=== PATIENT | male | born 1940 | race Caucasian/White ===

== ENCOUNTER → 2022-12-12 | Outpatient (CLI) | payer MEDICARE, SELFPAY ==
[2022-12-12 12:07] LABS: Absolute Lymphocyte Count 1.55 X10^3/uL (0.83-4.51); Absolute Neutrophil Count 3.7 X10^3/uL (2.0-7.7); Basophil# 0.08 X10^3/uL; Basophil% 1.2 % (0-1); Eosinophil# 0.35 X10^3/uL; Eosinophils% 5.4 % (0-5); Hematocrit 42.4 % (40-54); Hemoglobin 14.1 g/dL (13.0-16.5); Lymphocyte # 1.55 X10^3/ul (0.83-4.51); Lymphocyte % 23.8 % (19-41); Mean Corp Hgb Conc 33.3 g/dL (32-36); Mean Corpuscular Hgb 29.9 pg (27.0-32.0); Mean Corpuscular Volume 89.8 fL (80-94); Mean Platelet Vol. 9.6 fl (6.2-12.0); Monocyte# 0.83 X10^3/uL; Monocyte% 12.8 % (0-10); NRBC Flagged by Analyzer 0 % (0-5); Neutrophil # 3.68 X10^3/uL (2.7-7.7); Neutrophil % 56.6 % (47-70); Platelet Count 322 K/mm3 (150-450); RBC Distribution Width CV 13.5 % (11.6-14.6); Red Blood Count 4.72 M/mm3 (4.6-6.2); White Blood Count 6.5 K/mm3 (4.4-11.0)
[2022-12-12 12:19] LABS: Erythrocyte Sedimentation Rate 10 mm/hr (0-20)
[2022-12-12 12:46] LABS: CRP 4.96 mg/L (0.0-3.0)
== END | disposition home or self-care (01) ==
LOC: MTLAB 10:27
PROVIDERS: Referring Provider Ophthalmology; Visit Provider Ophthalmology
DX: H49.22 Sixth [abducent] nerve palsy, left eye (principal); Z96.1 Presence of intraocular lens
CPT/HCPCS: 36415; 85025; 85652; 86140

== ENCOUNTER 2023-06-12 19:14 | Emergency (ER) | payer MEDICARE, SELFPAY ==
[2023-06-12 19:15] VITALS: BP 160/93; PULSE 62; RESP 15; TEMP 35.7; O2SAT 96
--- NOTE | 2023-06-12 19:40 | RAD_ITS ---
STUDY: X-RAY - LEFT ANKLE REASON FOR EXAM: Male, 82 years old. INJURY TECHNIQUE: 3 view(s) of the ankle. COMPARISON: None. FINDINGS: Normal visualized distal tibia and fibula. Normal medial and lateral malleoli. Normal tibiotalar articulation and ankle mortise. Normal visualized talus and small plantar calcaneal spur The visualized subtalar, talonavicular, calcaneocuboid and tarsal articulations are normal. Soft tissue swelling of the lateral hindfoot and findings suspicious for avulsion fracture of the lateral cuboid only seen on AP view. Dedicated study of the foot recommended for further evaluation RAD/Ankle min 3 Views IMPRESSION: Normal x-ray examination of the ankle Findings suspicious for possible fracture of the lateral navicular only seen on the AP view. Additional studies of the foot recommended for further evaluation. Electronically Signed: Chano Kapoor MD at 20:18 EDT ,
--- NOTE | 2023-06-12 20:52 | ED.VIS.LOWEX ---
HPI History of Present Illness Chief Complaint: Lower Extremity Injury Informant: patient Narrative Narrative: Patient was in his garden earlier and stepped on an uneven piece of ground, causing his left foot to invert, with sudden onset of pain and a pop in the lateral part of his ankle. He states since then he has been unable to put any amount of significant weight on his left foot. He denies pain or injury elsewhere. [facility] Medical History HTN (hypertension) Allergy/AdvReac Type Severity Reaction Status Date / Time No Known Allergies Allergy Verified 06/12/23 19:19 Surgical History History of hip replacement Social History Smoking Status: Never smoker ROS ROS ED Constitutional Constitutional ED: Denies chills or fever(s) Musculoskeletal Musculoskeletal: Reports extremity pain; Denies neck pain Integumentary Denies Abrasions, rash or wounds Neurologic Neurologic: Denies paresthesias or weakness EXAM Physical Exam Const Vital Signs: 06/12/23 19:15 06/12/23 22:24 Temperature 96.2 F L Temperature Source Temporal Pulse Rate 62 57 L Respiratory Rate 15 16 Blood Pressure 160/93 H 138/75 H Blood Pressure Mean 115 96 Pulse Ox 96 97 Oxygen Delivery Method Room Air Room Air Positive well nourished and well developed General Appearance ED: well developed and NAD Neck full ROM and supple Back/Spine normal ROM and normal to inspection Extremity Extremity Narrative: Tenderness and some swelling at the distal aspect of the left lateral malleolus. He has some less/minor tenderness at the base of the fifth metatarsal, there is no swelling there. There is no tenderness in any other bony prominence of the foot or ankle including the medial malleolus, the joint is stable, limited range of motion due to pain, and no tenderness at the proximal fibula or elsewhere in the left lower extremity. Neuro oriented x3, no focal motor deficits and no sensory deficits noted Sensorium / Orientation: alert Psych mental status grossly normal and thought process normal Skin no wounds Rashes: no rashes MDM MDM MDM Narrative Medical decision making narrative: X-ray series 3 views of the left ankle on my interpretation negative for acute fracture. Radiology interpretation was reviewed, he was suspicious for a possible abnormal navicular and recommended a foot series, which was then obtained. Three-view series left foot on my interpretation does show what appears to be an avulsion fracture, suspecting the talus. The base of the fifth metatarsal appears normal. Radiology in agreement. Discussed with podiatry Dr. Maynard. He recommends boot orthosis, non--weightbearing with crutches and close outpatient follow-up. Patient was offered analgesics, he said he would take some Tylenol which was also given. Radiography Diagnostic Testing: Clinical Impression(s) from Imaging Studies Ankle X-Ray 06/12/23 19:40 IMPRESSION: Normal x-ray examination of the ankle Findings suspicious for possible fracture of the lateral navicular only seen on the AP view. Additional studies of the foot recommended for further evaluation. Electronically Signed: Chano Kapoor MD at 20:18 EDT , Foot X-Ray 06/12/23 21:11 IMPRESSION: Suspect acute cortical avulsion fracture of the distal lateral talus with separation of fracture fragments Electronically Signed: Chano Kapoor MD at 21:58 EDT , Discharge Plan Triage Chief Complaint: Lower Extremity Injury ED Provider: Sumeet Renee Dx/Rx/DC Orders Clinical Impression: Avulsion fracture of left talus, Left ankle sprain Instructions: ED Fracture, Foot, ED Ankle Sprain (Adult) Primary Care Provider: [facility] Doctor,Out of Referrals: Ervin Maynard DPM [Med Staff - Active Staff] - (call for follow up appt to be seen within the next 1-2 weeks) Care Physician,No Primary [Non-Staff] - Activity Restrictions/Additional Instructions: Try to avoid bearing any weight on your left foot. May take the boot off to sleep, bathe. Disposition Disposition: Home, Self Care
--- NOTE | 2023-06-12 21:11 | RAD_ITS ---
STUDY: X-RAY - LEFT FOOT CLINICAL: Male, 82 years old. injury TECHNIQUE: 3 view(s) of the foot. COMPARISON: None. FINDINGS: There is a bony density lateral to the distal talus with irregular margins and adjacent soft tissue swelling suspicious for avulsed cortical fracture. Tiny plantar calcaneal spur Normal visualized subtalar, talonavicular, calcaneocuboid, tarsal and tarsometatarsal articulations. Normal metatarsi. Normal metatarsophalangeal joint of the great toe. Normal tibial and fibular sesamoid bones. Normal interphalangeal joint of the great toe. Normal phalanges of the great toe. Normal second through fifth metatarsophalangeal joints. Normal interphalangeal joints and phalanges of the lesser toes. RAD/Foot min 3 Views IMPRESSION: Suspect acute cortical avulsion fracture of the distal lateral talus with separation of fracture fragments Electronically Signed: Chano Kapoor MD at 21:58 EDT ,
[2023-06-12] MEDS: Acetaminophen 500 MG Tablet 1000 MG PO (22:21)
[2023-06-12 22:24] VITALS: BP 138/75; PULSE 57; RESP 16; O2SAT 97
[2023-06-12 22:25] VITALS: BMI 35.6
== END 2023-06-12 23:21 | disposition home or self-care (01) ==
PROVIDERS: Emergency Provider Emergency Medicine; Visit Provider Emergency Medicine
DX: S92.102A Unspecified fracture of left talus, initial encounter for closed fracture (principal); S93.402A Sprain of unspecified ligament of left ankle, initial encounter; X50.1XXA Overexertion from prolonged static or awkward postures, initial encounter; I10 Essential (primary) hypertension
CPT/HCPCS: 73610; 73630; 99284

== ENCOUNTER → 2023-06-23 | Outpatient (CLI) | payer MEDICARE, SELFPAY ==
--- NOTE | 2023-06-23 07:34 | MRI_ITS ---
STUDY: MRI LEFT ANKLE WITHOUT CONTRAST REASON FOR EXAM: Male, 83 years old. LT ANKLE,PAIN,POST TRAUMA,EVAL FOR PT SPLIT TEAR/FX OF HIND FOOT TECHNIQUE: Standardized fat and water weighted pulse sequences were obtained in all 3 orthogonal planes. COMPARISON: None. FINDINGS: Normal subcutis adipose space. Normal posterior tibialis tendon. Normal flexor digitorum longus tendon. Normal flexor hallucis longus tendon. There is a tenosynovitis of the peroneal tendons without a demonstrated tendon tear. 5 mm os perineum with thickening of the adjacent peroneus longus tendon. Normal tibialis anterior tendon. Normal extensor hallucis longus tendon. Normal extensor digitorum longus tendons. Normal Achilles tendon and teno-osseous insertion. There is a plantar fasciitis with plantar fascial thickening and fascial edema, but without a focal tear. There is a plantar calcaneal spur, but without cancellous marrow edema. Normal intrinsic muscles of the rearfoot. Normal distal tibiofibular syndesmotic ligamentous complex. There is scarring with thickening of the anterior talofibular ligament consistent with a remote sprain. Normal subtalar ligaments and sinus tarsi. Normal deltoid ligamentous complexes. Normal plantar calcaneonavicular (spring) ligament. Normal tibiotalar articulation. Normal talar dome. Normal subtalar articulations. Normal talonavicular articulation. Normal calcaneocuboid articulation. Normal navicular-cuneiform articulations. MRI/Lower Ext Joint Only (Routine) IMPRESSION: 1. Thickening in of the anterior talofibular ligament calcaneofibular ligament consistent with prior injury. 2. Mild peroneal tenosynovitis with a small os perineum and focal thickening of the adjacent peroneus longus tendon. 3. Mild plantar fasciitis. Electronically Signed: Rhys Montana MD at 23:16 EDT ,
== END | disposition home or self-care (01) ==
LOC: MRI 08:15
PROVIDERS: Referring Provider Student in an Organized Health Care Education/Training Program; Visit Provider Student in an Organized Health Care Education/Training Program
DX: M79.672 Pain in left foot (principal)
CPT/HCPCS: 73721

== ENCOUNTER → 2023-07-13 | Outpatient (CLI) | payer MEDICARE, SELFPAY ==
[2023-07-13 12:04] LABS: Absolute Lymphocyte Count 1.86 X10^3/uL (0.83-4.51); Absolute Neutrophil Count 3.5 X10^3/uL (2.0-7.7); Basophil# 0.08 X10^3/uL; Basophil% 1.2 % (0-1); Eosinophil# 0.43 X10^3/uL; Eosinophils% 6.4 % (0-5); Hematocrit 40.6 % (40-54); Hemoglobin 13.2 g/dL (13.0-16.5); Lymphocyte # 1.86 X10^3/ul (0.83-4.51); Lymphocyte % 27.9 % (19-41); Mean Corp Hgb Conc 32.5 g/dL (32-36); Mean Corpuscular Hgb 29.1 pg (27.0-32.0); Mean Corpuscular Volume 89.4 fL (80-94); Mean Platelet Vol. 9.5 fl (6.2-12.0); NRBC Flagged by Analyzer 0 % (0-5); Neutrophil # 3.49 X10^3/uL (2.7-7.7); Neutrophil % 52.4 % (47-70); Platelet Count 339 K/mm3 (150-450); RBC Distribution Width CV 13.4 % (11.6-14.6); RBC Distribution Width SD 44.1 fl (35.1-43.9); Red Blood Count 4.54 M/mm3 (4.6-6.2); White Blood Count 6.7 K/mm3 (4.4-11.0)
[2023-07-13 12:45] LABS: ALB/GLOB Ratio 0.9 RATIO (0.9-2.4); AST(SGOT) 19 U/L (15-37); Alanine Aminotransfer ALT/SGPT 20 U/L (16-61); Albumin, Serum 3.5 g/dL (3.2-5.0); Alkaline Phosphatase 84 U/L (45-117); Anion Gap 5 (5-15); BUN 14 mg/dL (7-18); BUN/Creat Ratio 13.9 RATIO (10-20); Calcium,Total 9.1 mg/dL (8.5-10.1); Chloride 100 mmol/L (98-107); Cholesterol 133 mg/dL (200); Creatinine, Serum 1.01 mg/dL (0.70-1.30); EST Glomerular Filtration Rate 75 mL/min (>60); Est Glom Filt Rate - Afr Amer 91 mL/min (>60); Glucose 96 mg/dL (74-106); High Density Lipoprotein 50 mg/dL; Potassium 4.2 mmol/L (3.5-5.1); Protein, Total 7.5 g/dL (6.4-8.2); Sodium Level 131 mmol/L (136-145); Triglycerides 102 mg/dL; Very Low Density Lipoprotein 20 mg/dL (5-40)
== END | disposition home or self-care (01) ==
PROVIDERS: PCP Family Medicine; Referring Provider Family Medicine; Visit Provider Family Medicine
DX: I10 Essential (primary) hypertension (principal)
CPT/HCPCS: 36415; 80053; 80061; 85025

== ENCOUNTER 2024-07-04 08:00 | Outpatient (RCR) | payer MEDICARE, SELFPAY ==
--- NOTE | 2024-05-13 09:48 | HP.PTEVAL_ITS ---
Patient's Visit Information Visit Information Visit Information: KATHI MARR is a 83 year old M referred to Physical Therapy by Manav Moyer MD with a diagnosis of 05/08/24 Right Reverse Total Shoulder. Date of Evaluation: 05/13/24 Physical Therapist: Nayla Tim DPT Visit Plan Frequency: 2x /Week Duration: 4 Weeks Plan: Reverse TSA 05/08/24- Follow Dr. Hammond Reverse TSA protocol Reviewed HEP: elbow flexion/extn, scap retraction, shoulder rolls, collect on delivery clerk, PROM ER and Flexion Subjective Subjective: Right Reverse TSA 05/08/24- by Dr. Manav Hammond- went home the next day- they have been managing well at home. The pain at its worst since being home 01/05 Agg: moving it around. Eases: ice, rest, medication. Best: 0/10. He has been very surprised at how little pain he has had. When he has had the discomfort its been in the elbow and he feels its due to the sling. He adjusted the sling and its been better. sleep: has been in the chair. No N/T in the fingers. He goes back to the MD tomorrow. Right hand dominate. 6 weeks prior to surgery he has PT which was really painful. He is pretty active prior to surgery was building a house- would like to be able to get back to finish his projects. No neck pain, headaches. PMHx: HTN Meds: atenalol, losartin, atorvasis, pantrolprolo, cloprilol, antibiotic, baby asprin Objective Objective: Posture: forward head, rounded shoulders- guarding of the right UE- sling in place Observation: did not see incision- covered with bandage-sees MD tomorrow- bruising along biceps Palpation: tender along bicipital groove and upper trap ROM: cervical: WNL finger dexterity: WNL, Wrist: WNL, Elbow: Sup: WNL discomfort at end range Pro: WNL, Extn: 30 degrees from full pt reports this is his normal, flexion: WNL with discomfort at end range, PROM: Shoulder: Flexion: 90 degrees, ER: 15 degrees, Abd: 90 degrees, IR: to belly Strength: collect on delivery clerk: fair- no other motions tested due to surgical intervention Balance/Special Test Scores Quick DASH Score: 86.3625 Goals Goal 1:: Patient will be I with HEP and progression Goal Time Frame: 4-6 Weeks Goal 2:: Patient will demo full AROM as per protocol Goal Time Frame: 4-6 Weeks Goal 3:: Patient will maintain proper posture t/o tx session to demo increased scap s/s Goal Time Frame: 4-6 Weeks Goal 4:: Patient will report 80% improvement Goal Time Frame: 4-6 Weeks Rehabilitation Potential Physical Therapy Diagnosis: Patient presents s/p Right Reverse TSA- pt has decreased ROM, scapular and UE strength/stabilization and muscular endurance leading to poor posture and increased pain with ADL's. Rehabilitation Potential: Good Anticipated Interventions Patient/Client Instruction: Educate patient on: Benefits of Fitness Program Therapeutic Exercise to Include: Strength training, Endurance training, Body mechanics, Postural training, Flexibilty training, Neuromotor development, Passive ROM, Active ROM, Dynamic Lumbar Stabilization and Scapular Strength/Stabilization For the Purpose of:: To improve ability to perform ADL's Manual Therapy Techniques to Include: Passive ROM and Soft tissue mobilization Cryotherapy (ice pack, ice massage): Yes Thermo therapy (hot pack): Yes Text: Thank you for the opportunity to evaluate your patient. For Medicare and Medicare HMO plans, please review the plan of care and approve it. It will need to be FAXED BACK to us at [phone] for Medicare purposes. For Medicare only, by signing this I certify the plan of care. Please let me know if there are questions or concerns regarding this plan of care. Physician Signature: Date:
--- NOTE | 2024-07-04 09:05 | HP.PTREVAL_ITS ---
Re-Evaluation Intro: Manav Moyer MD, It has been my pleasure to treat KATHI MARR over the last 17 visits for 05/08/24 Right Reverse Total Shoulder. Please see the progress note below for an update on the physical therapy plan of care! Subjective Subjective: Pt. reports being a lot better. He reports being 70%. Pt. reports no pain, He was able to lift a water softener bag of salt at home. Objective Objective/Function: PROM: Flexion 146deg, ER at 90deg 41, abd 141. AROM: flexion 144deg, abd 119deg, Functional ER occipital, functional IR R SI joint. MMT: R shoulder: flexion 4+/5, abd 4+/5, ER 4/5, IR 5-/5 I reviewed his HEP this date. Working on OH stretching and behind his back. He has decent strength throughout his shoulder as well. Plan Plan Plan: Pt. to follow up with physician in 1.5 weeks and decide how to proceed. I gave him some gym and stretching exercises to complete on his own during this time as well. Balance/Gait/Functional tests Balance/Special Test Scores Quick DASH Score: 72.7250 Goals Goals Goal 1:: Patient will be I with HEP and progression Goal Time Frame: 4-6 Weeks Goal Progress: Goal Met Goal 2:: Patient will demo full AROM as per protocol Goal Time Frame: 4-6 Weeks Goal Progress: Progressing Goal 3:: Patient will maintain proper posture t/o tx session to demo increased scap s/s Goal Time Frame: 4-6 Weeks Goal Progress: Progressing Goal 4:: Patient will report 80% improvement Goal Time Frame: 4-6 Weeks Goal Progress: Progressing Anticipated Interventions Anticipated Interventions Patient/Client Instruction: Educate patient on: Benefits of Fitness Program Therapeutic Exercise to Include: Strength training, Endurance training, Body mechanics, Postural training, Flexibilty training, Neuromotor development, Passive ROM, Active ROM, Dynamic Lumbar Stabilization and Scapular Strength/ Stabilization For the Purpose of:: To improve ability to perform ADL's Manual Therapy Techniques to Include: Passive ROM and Soft tissue mobilization Cryotherapy (ice pack, ice massage): Yes Thermo therapy (hot pack): Yes Re-Evaluation Ending Re-evaluation ending: Please do not hesitate to contact me at [phone] by phone or if you have questions or concerns regarding this new plan of care! Sincerely, ALEX ArciniegaT
== END 2024-07-04 19:00 | disposition home or self-care (01) ==
LOC: PT 08:00
PROVIDERS: PCP Family Medicine; Referring Provider Orthopaedic Surgery; Visit Provider Orthopaedic Surgery
DX: M19.011 Primary osteoarthritis, right shoulder (principal)
CPT/HCPCS: 97110; 97140; 97162; 97530

== ENCOUNTER 2024-11-25 07:07 | Day surgery (SDC) | payer MEDICARE, SELFPAY ==
[2024-11-25] VITALS (7 sets, daily range): BP systolic 95–166; BP diastolic 57–92; PULSE 59–66; RESP 12–18; TEMP 35.9–36.2; O2SAT 94–98; BMI 36.9
--- NOTE | 2024-11-25 07:41 | PCM.PRE.AN2 ---
ASA Classification* ASA Classification ASA Classification: 3 Assessment & Plan Anesthesia* Anesthesia Assessment Anesthesia Assessment: Discussed sedation and/or anesthesia options, risks, benefits, and alternatives with patient/parents/legal guardian/POA. Questions invited. The patient/parents/legal guardian/POA seems to understand and agrees to proceed with anesthesia plan. Reviewed the physical assessment, medical history, allergy history and patient home medications list prior to surgery/procedure/anesthetic and documented any changes. Performed airway and anesthesia risk assessments. Anesthesia Type Anesthesia Type: MAC History Source History Obtained from:: Patient and Chart Anesthesia Focused Assessment* Temperature: 96.6 F Pulse Rate: 66 Blood Pressure: 166/92 Respiratory Rate: 12 Pulse Ox: 97 Oxygen Delivery Method: Room Air Airway Assessment Mouth opens: >3 cm Mallampati Score: IV Teeth Condition: Caps/Crowns (Patient has several crowns. They are all tight.) Neck Range of motion (ROM): Limited ROM (Severe decrease in extension) Focused Labs Anesthesia Preop lab: CBC WBC 6.7 K/mm3 (4.4-11.0) 07/13/23 10:36 RBC 4.54 M/mm3 (4.6-6.2) L 07/13/23 10:36 Hgb 13.2 g/dL (13.0-16.5) 07/13/23 10:36 Hct 40.6 % (40-54) 07/13/23 10:36 Plt Count 339 K/mm3 (150-450) 07/13/23 10:36 CHEMISTRY Potassium 4.2 mmol/L (3.5-5.1) 07/13/23 10:36 Sodium 131 mmol/L (136-145) L 07/13/23 10:36 BUN 14 mg/dL (7-18) 07/13/23 10:36 Creatinine 1.01 mg/dL (0.70-1.30) 07/13/23 10:36 Glucose 96 mg/dL (74-106) 07/13/23 10:36 COAG Pre-Assessment Diagnosis/Proposed Procedure Planned Operative Procedure(s): EGD Anesthesia History 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 When Was Last Pacemaker Check QUESTION #4 FULL TEXT: You/Your Family Experience fever (hyperthermia) with Anesthesia Last Oral Intake Last Oral intake: Last Oral Intake NPO since 21:00 11/25/24 07:26 Meds taken in AM with sips of Yes 11/25/24 07:26 water? 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 set up operator Female No 11/24/24 12:14 HX of Motion Sickness No 11/24/24 12:14 HX of N/V After Surgery No 11/24/24 12:14 Non-Smoker Yes 11/24/24 12:14 Duration of Surgery greater No 11/24/24 12:14 than 60 minutes Number of Risk Factors 1 11/24/24 12:14 PONV Score Low Risk 11/24/24 12:14 Height & Weight Height & Weight: Anesthesia: Height & Weight Height 6 ft 1 in 11/25/24 07:26 Weight: 127 kg 11/25/24 07:26 Body Mass Index (BMI) 36.9 11/25/24 07:26 Respiratory Assessment Respiratory Assessment - paper goods machine set up operator: Respiratory Tract Infection Hx - paper goods machine set up operator Hx Respiratory Tract Infection No 11/24/24 12:14 STOP Sleep Apnea STOP Sleep Apnea - paper goods machine set up operator: STOP Sleep Apnea - paper goods machine set up operator Hx Hypertension Yes: CONTROLLED ON MED 11/24/24 12:14 Hx Sleep Apnea No 11/24/24 12:14 CPAP BIPAP Do you snore loudly (louder No 11/24/24 12:14 than talking or can be heard Do you often feel tired/ No 11/24/24 12:14 fatigued/ sleepy during daytime? Has anyone observed you stop No 11/24/24 12:14 breathing during sleep? STOP Results Negative 11/24/24 12:14 QUESTION #5 FULL TEXT : Do you snore loudly (louder than talking or can be heard through closed doors)? 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 Specify any problems Hx of Preganancy in last 3 N/A 11/24/24 12:14 Months Nurse Filling Out Transfusion VCHRISTIN 11/24/24 12:14 & Questions: Date: 11/24/24 11/24/24 12:14 Time: 12:20 11/24/24 12:14 Patient unable to answer at this time (ie. 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 Medical History Wears glasses History of steroid therapy Injury of back Injury of head and neck TIA (transient ischemic attack) History of ulceration Gastric reflux Non-smoker Chronic cough History of stress test History of irregular heartbeat Arthritis HTN (hypertension) Home Medications ?Medication ?Instructions ?Recorded ?Last Taken ?Type atorvastatin 20 mg tablet 20 mg PO QDAY 11/10/24 Unknown History cholecalciferol (vitamin D3) 25 25 mcg PO QDAY 11/10/24 11/24/24 History mcg (1,000 unit) capsule clopidogrel 75 mg tablet 75 mg PO QDAY 11/10/24 11/19/24 History losartan 25 mg tablet 25 mg PO QDAY 11/10/24 11/25/24 History multivitamin 1 tab PO QAM 11/10/24 11/24/24 History pantoprazole 40 mg tablet,delayed 40 mg PO QDAY 11/10/24 Unknown History release atenolol 50 mg tablet 50 mg PO DAILY 11/24/24 11/25/24 History Allergy/AdvReac Type Severity Reaction Status Date / Time No Known Allergies Allergy Verified 11/25/24 07:25 Family History Mother Cancer CVA (cerebral vascular accident) Father Heart disease Surgical History Hx of elbow surgery H/O shoulder replacement H/O total knee replacement History of hip replacement Social History Smoking Status: Never smoker alcohol intake: never Review of Systems (Anesthesia) ROS Narrative System reviewed and no additional complaints, except as documented.
--- NOTE | 2024-11-25 07:50 | HP.PCM_ITS ---
History and Physical Date of Admission: 11/25/24 Intake Vital Signs 06/12/2319:15 11/10/2507:18 Height 6 ft 3 in 6 ft 1 in Weight: 282 lb BMI 37.2 BP 157/98 H Blood Pressure Location Rt brachial Position Sitting Respiration 17 Pulse 56 L Pulse Source Monitor Pulse Oximetry (%) 98 Oxygen Delivery Method room air Intake Visit Reasons: Esophagogastroduodenoscopy Chief Complaint: egd with dilatation Is patient in pain?: No Allergies No Known Allergies Allergy (Verified 11/10/24 08:19) Medications ?Medication ?Instructions ?Recorded ?Confirmed ?Type atenolol 25 mg tablet 25 mg PO BID 11/10/24 11/10/24 History atorvastatin 20 mg tablet 20 mg PO QDAY 11/10/24 11/10/24 History cholecalciferol (vitamin D3) 25 25 mcg PO QDAY 11/10/24 11/10/24 History mcg (1,000 unit) capsule clopidogrel 75 mg tablet 75 mg PO QDAY 11/10/24 11/10/24 History losartan 25 mg tablet 25 mg PO QDAY 11/10/24 11/10/24 History multivitamin 1 tab PO QAM 11/10/24 11/10/24 History pantoprazole 40 mg tablet,delayed 40 mg PO QDAY 11/10/24 11/10/24 History release Have you fallen in the past year?: No PFSH Medical History (Updated 11/10/24 @ 08:12 by Radha Zavala) Arthritis HTN (hypertension) Surgical History (Updated 11/10/24 @ 08:13 by Radha Zavala) H/O shoulder replacement H/O total knee replacement History of hip replacement Family History (Updated 11/10/24 @ 08:14 by Radha Zavala) Mother Cancer CVA (cerebral vascular accident)Father Heart disease Social History (Updated 11/10/24 @ 08:18 by Radha Zavala) Smoking Status: Never smoker alcohol intake: never HPI HPI HPI: Patient is an 84-year-old male here for dysphagia. Patient has had dilation twice in the past. He reports has been going on for over a year. His last dilation was about 6 years ago. He denies nausea or vomiting. He is on a PPI. ROS General General: No weight change, appetite, fatigue, colon cancer, breast cancer or weakness HEENT HEENT: Yes difficulty swallowing; No eye injury, eye surgery, swollen glands or hoarseness Endo Endocrine: No thyroid disease, diabetes mellitus, thyroid cancer, Hair loss, heat intolerance or cold intolerance Skin Skin: No rash or changing moles Musc Musculoskeletal: Yes arthritis; No back problems, rheumatoid arthritis, gout or joint pain Cardio Cardiovascular: Yes high blood pressure; No murmur, pacemaker, heart disease, atrial fibrillation, heart attack, heart stent, palpitations, shortness of breat with exertion or chest pain Psych Psychiatric: No depression, anxiety or hearing voices Resp Respiratory: No shortness of breath, No sleep apnea, Yes cough, No COPD, No asthma, No emphysema and No wheezing Gastro Gastrointestinal: No abdominal pain, No nausea or vomiting, No diarrhea, No constipation, No blood in stool, No acid reflux, No hemorrhoids, No ulcers, No gallbladder problem and No black,tarry stools Bernabe Hematologic: Yes blood thinners, No blood disorders, No bleeding, No anemia and No blood clots Neuro Neurologic: No system reviewed and no additional complaints, except as documented, No as per HPI, No abnormal gait, No abnormal hearing, No abnormal movements, No abnormal speech, No behavioral changes, No burning sensations, No confusion, No convulsions, No disequilibrium, No dizziness, No localized weakness, No frequent falls, No headache(s), No lack of coordination, No loss of vision, No memory loss, No numbness, No other visual disturbances, No radicular pain, No restless legs, No sensory deficit, No syncope, No tingling, No tremor(s), No weakness and No other Exam Const General: cooperative Orientation: alert and oriented x3 HENMT Head: normal to inspection Neck Neck: normal visual inspection and full ROM Chest Chest palpation & inspection: normal inspection of the chest Resp Effort & Inspection: normal respiratory effort Auscultation: clear to auscultation bilaterally Cardio Rate: regular rate Rhythm: regular rhythm GI Inspection: non-distended Palpation: soft and nontender Skin General: no rashes or lesions noted Neuro General: patient alert and patient oriented x3 Extrem General: full ROM Psych Appearance: grossly normal Mental Status: mental status grossly normal Assessment and Plan Assessment and Plan (1) Difficulty swallowing: Status: Acute Plan: Patient is having dysphagia. He says has been going on for about a year. I would like to perform an EGD with possible dilation to evaluate and possibly treat. I explained endoscopy in detail to the patient. I explained the risks including but not limited to stroke or heart attack with anesthesia, perforation of the GI tract, bleeding, infection. I explained that any of these could necessitate further emergency surgery. The patient understands and all questions were answered sufficiently. The patient wishes to proceed with procedure. I did discuss the increased risk of bleeding or perforation with dilation and the patient understands. Patient will hold his Plavix for 5 days prior to the procedure. Vinny Garza MD Pager: [facility] [address] [place] [address], [address] [place] [address] Office: I have examined the patient and the H&P has been reviewed. There are no clinical changes since date of exam.
--- NOTE | 2024-11-25 08:15 | EGD_PTH ---
PATIENT: KATHI MARR LOC: EN U#:[id number] AGE/SX: 84/M ROOM: RE11/25/[address]: Dr. Vinny Garza MD : 1940 BED: DIS: 11/25/2024 SPEC #: [id number] RECD: 11/25/24 11:12 STATUS: ALIZA JACKSON #: [id number] BARBARA: 11/25/24 08:[address]: Vinny Garza DEPT: SURGICAL PATHOLOGY RECD BY: Emily Newby ENTERED: 11/25/24 12:20 SP TYPE: EGD BIOPSY OTHR DR: Phil De Guzman MD Tissues: Esophagus, NOS Procedures: Surgery Specimen Level IV HEADER OPERATION: EGD with dilation and biopsy PRE-OP DIAGNOSIS: Difficulty swallowing TISSUE SUBMITTED: Esophageal ulcer biopsy MICROSCOPIC DIAGNOSIS Esophageal ulcer, biopsy: Squamous epithelium with focal areas of increased eosinophils (22 per high power field). 11/27/2024 MICROSCOPIC DESCRIPTION Slides are reviewed. GROSS DESCRIPTION Received in fixative is one container labeled with the patient's name and designated Esophageal ulcer biopsy. The specimen consists of one irregular fragment of light raymond soft tissue that measures 0.7 x 0.3 x 0.2 cm. The specimen is totally submitted in one cassette. 11/25/2024 TC:2 CPT:11559
--- NOTE | 2024-11-25 08:18 | OP.CCLET_ITS ---
11/25/2024 Phil De Guzman Md Re : Upper GI endoscopy procedure for Moustapha Vernonr Gege This procedure was performed on Monday, November 25, 2024. My impressions and recommendations are as follows: Impressions : - Benign-appearing esophageal stenosis. Dilated. - Esophageal ulcers with no bleeding and no stigmata of recent bleeding. Biopsied. Recommendations : - Discharge patient to home. - Resume previous diet. - Continue present medications. - Await pathology results. - Return to my office in 2 weeks. My findings are described in the full procedure note, which is enclosed. If I can be of further assistance, please feel free to contact me at Doctor phone number(s): , Work: . Sincerely, Vinny Garza MD 11/25/2024 8:17:49 AM This report has been signed electronically.
--- NOTE | 2024-11-25 08:18 | OP.EGD_ITS ---
Patient Name: Moustapha Deng Procedure Date: 11/25/2024 7:55 AM Date of : 1940 Age: 84 Procedure: Upper GI endoscopy Indications: Dysphagia Providers: Vinny Garza MD Referring MD: Phil De Guzman Md Medicines: Propofol per Anesthesia Patient Profile: This is an 84 year old male. Refer to note in patient chart for documentation of history and physical. Complications: No immediate complications. Estimated blood loss: Minimal. Procedure: Pre-Anesthesia Assessment: - Prior to the procedure, a History and Physical was performed, and patient medications and allergies were reviewed. The patient's tolerance of previous anesthesia was also reviewed. The risks and benefits of the procedure and the sedation options and risks were discussed with the patient. All questions were answered, and informed consent was obtained. Prior Anticoagulants: The patient has taken no anticoagulant or antiplatelet agents. After reviewing the risks and benefits, the patient was deemed in satisfactory condition to undergo the procedure. After obtaining informed consent, the endoscope was passed under direct vision. Throughout the procedure, the patient's blood pressure, pulse, and oxygen saturations were monitored continuously. The Endoscope was introduced through the mouth, and advanced to the third part of duodenum. The upper GI endoscopy was accomplished without difficulty. The patient tolerated the procedure well. Scope In: 8:07:59 AM Scope Out: 8:14:10 AM Total Procedure Duration Time 0 hours 6 minutes 11 seconds Findings: One benign-appearing, intrinsic mild stenosis was found at the gastroesophageal junction. This stenosis measured less than one cm (in length). The stenosis was traversed. A TTS dilator was passed through the scope. Dilation with a 15-16.5-18 mm balloon dilator was performed to 18 mm. The dilation site was examined following endoscope reinsertion and showed no change. Estimated blood loss was minimal. Two cratered esophageal ulcers with no bleeding and no stigmata of recent bleeding were found in the lower third of the esophagus. Biopsies were taken with a cold forceps for histology. Impression: - Benign-appearing esophageal stenosis. Dilated. - Esophageal ulcers with no bleeding and no stigmata of recent bleeding. Biopsied. Recommendation: - Discharge patient to home. - Resume previous diet. - Continue present medications. - Await pathology results. - Return to my office in 2 weeks. Procedure Code(s): --- Professional --- 96758, Esophagogastroduodenoscopy, flexible, transoral; with transendoscopic balloon dilation of esophagus (less than 30 mm diameter) Diagnosis Code(s): --- Professional --- K22.2, Esophageal obstruction K22.10, Ulcer of esophagus without bleeding R13.10, Dysphagia, unspecified CPT copyright 2021 [employer]. All rights reserved. The codes documented in this report are preliminary and upon presser automatic review may be revised to meet current compliance requirements. Vinny Garza MD 11/25/2024 8:17:49 AM This report has been signed electronically. Number of Addenda: 0 Note Initiated On: 11/25/2024 7:55 AM
--- NOTE | 2024-11-25 08:24 | PCM.POST.ANE ---
Anesthesia: Postop Eval I Current Vital Signs Temperature: 97.1 F Pulse Rate: 62 Blood Pressure: 107/78 Respiratory Rate: 18 Pulse Ox: 98 Assessment Airway patent: Yes Spontaneous unlabored respirations: Yes nausea: No Vomiting: No Anesthesia Complication: No Fluid Hydration Crystalloid volume administer (ml): 30 Total IV fluid infused: 30 Progress Note Anesthesia document: Postop Eval 1 completed: Yes
--- NOTE | 2024-11-25 22:36 | POSTOPAN2_ITS ---
Anesthesia Postop Eval I Sum Postop Eval Completion status Anesthesia document: Postop Eval 1 completed: Yes Anesthesia Postop Eval I Summary Anesthesia Postop Eval I Summary: Anesthesia Postop Eval I: Assessment Summary Airway patent Yes 11/25/24 08:24 [email or web address] Spontaneous unlabored Yes 11/25/24 08:24 [email or web address] [email or web address] respirations Mental status nausea No 11/25/24 08:24 [email or web address] [email or web address] Vomiting No 11/25/24 08:24 [email or web address] Anesthesia Postop Eval I: Fluid Summary Crystalloid volume administer 30 11/25/24 08:24 [email or web address] (ml) Colloids volume administered ( ml) Blood Product volume administered (ml) Total IV fluid infused 30 11/25/24 08:24 [email or web address] Anesthesia Postop Eval I: Summary Notes Anesthesia Complication No 11/25/24 08:24 [email or web address] Anesthesia Complication Comment: Post-operative progress note Anesthesia: Postop Eval II Evaluation Mental status: Awake and Calm Pain Level: 0 nausea: No Vomiting: No Complications Anesthesia Complication: No
--- NOTE | 2024-11-25 22:36 | PCM.POSTANE2 ---
Anesthesia Postop Eval I Sum Postop Eval Completion status Anesthesia document: Postop Eval 1 completed: Yes Anesthesia Postop Eval I Summary Anesthesia Postop Eval I Summary: Anesthesia Postop Eval I: Assessment Summary Airway patent Yes 11/25/24 08:24 AUTO TRANSMISSION [email or web address] Spontaneous unlabored Yes 11/25/24 08:24 AUTO TRANSMISSION [email or web address] respirations Mental status nausea No 11/25/24 08:24 AUTO TRANSMISSION [email or web address] Vomiting No 11/25/24 08:24 AUTO TRANSMISSION [email or web address] Anesthesia Postop Eval I: Fluid Summary Crystalloid volume administer 30 11/25/24 08:24 AUTO TRANSMISSION [email or web address] (ml) Colloids volume administered ( ml) Blood Product volume administered (ml) Total IV fluid infused 30 11/25/24 08:24 AUTO TRANSMISSION [email or web address] Anesthesia Postop Eval I: Summary Notes Anesthesia Complication No 11/25/24 08:24 AUTO TRANSMISSION [email or web address] Anesthesia Complication Comment: Post-operative progress note Anesthesia: Postop Eval II Evaluation Mental status: Awake and Calm Pain Level: 0 nausea: No Vomiting: No Complications Anesthesia Complication: No
== END 2024-11-25 08:50 | disposition home or self-care (01) ==
LOC: EN 07:07 → AC 07:09
PROVIDERS: PCP Family Medicine; Referring Provider Family Medicine; Visit Provider Surgery
PROC: 0DJ08ZZ Inspection of Upper Intestinal Tract, Via Natural or Artificial Opening Endoscopic (ICD-10-PCS; CPT 43235; principal; 2024-11-25 08:10)
DX: K22.2 Esophageal obstruction (principal); I10 Essential (primary) hypertension; K22.10 Ulcer of esophagus without bleeding; K21.9 Gastro-esophageal reflux disease without esophagitis; Z79.899 Other long term (current) drug therapy; Z79.01 Long term (current) use of anticoagulants
CPT/HCPCS: 43249; 43239; 88305

== ENCOUNTER → 2025-10-05 | Outpatient (CLI) | payer MEDICARE, SELFPAY ==
--- NOTE | 2025-10-05 10:15 | RAD_ITS ---
PROCEDURE: FOOT MIN 3 VIEWS 10/05/2025 REASON FOR EXAM: PAIN TECHNIQUE: Procedure Code: RADFO Modality: DX Procedure: FOOT MIN 3 VIEWS Left foot three views COMPARISON: June 12, 2023 FINDINGS: There is no fracture or dislocation identified. A benign-appearing calcaneal spur is noted. Soft tissue calcifications are noted in the region of the peroneal tendons, similar to the prior. Mineralization is normal. Vascular calcifications are visible. RAD/Foot min 3 Views IMPRESSION: No fracture or dislocation is identified. Reading Location: [facility]
== END | disposition home or self-care (01) ==
LOC: MTRAD 10:14
PROVIDERS: PCP Family Medicine; Referring Provider Family Medicine; Visit Provider Family Medicine
DX: M79.672 Pain in left foot (principal)
CPT/HCPCS: 73630

== ENCOUNTER → 2025-10-09 | Outpatient (CLI) | payer MEDICARE, SELFPAY ==
[2025-10-09 10:20] LABS: Hematocrit 43.0 % (40-54); Hemoglobin 14.5 g/dL (13.0-16.5); Mean Corp Hgb Conc 33.7 g/dL (32-36); Mean Corpuscular Volume 87.9 fL (80-94); Mean Platelet Vol. 9.5 fl (6.2-12.0); Platelet Count 344 K/mm3 (150-450); RBC Distribution Width CV 13.4 % (11.6-14.6); RBC Distribution Width SD 43.8 fl (35.1-43.9); Red Blood Count 4.89 M/mm3 (4.6-6.2); White Blood Count 7.8 K/mm3 (4.4-11.0)
[2025-10-09 11:00] LABS: AST(SGOT) 24 U/L (<=37); Alanine Aminotransfer ALT/SGPT 17 U/L (<=46); Albumin, Serum 4.0 g/dL (3.4-4.8); Alkaline Phosphatase 78 U/L (40-129); Anion Gap 10 (5-15); BUN 14 mg/dL (4-19); BUN/Creat Ratio 12.3 RATIO (10-20); Calcium,Total 9.3 mg/dL (7.6-11.0); Carbon Dioxide 25.9 mmol/L (21.0-32.0); Chloride 97 mmol/L (98-108); Cholesterol 144 mg/dL (<=200); Globulin 3.1 g/dL (2.2-4.2); Glucose 93 mg/dL (70-99); Low Density Lipoprotein Calc. 76 mg/dL; PSA,Total - Annual Screen 2.11 ng/mL (0.02-4.00); Potassium 4.4 mmol/L (3.3-5.1); Triglycerides 119 mg/dL; Very Low Density Lipoprotein 24 mg/dL (5-40); cholesterol:hdl ratio screen 3.08
== END | disposition home or self-care (01) ==
LOC: MTLAB 07:45
PROVIDERS: PCP Family Medicine; Referring Provider Family Medicine; Visit Provider Family Medicine
DX: Z12.5 Encounter for screening for malignant neoplasm of prostate (principal); I10 Essential (primary) hypertension; E78.5 Hyperlipidemia, unspecified
CPT/HCPCS: 36415; 80053; 80061; 84153; 85027; G0103